=== PATIENT | female | born 1990 | race Caucasian/White ===

== ENCOUNTER 2017-05-04 16:33 | Emergency (ER) | payer MEDICAID ==
[~2017-05-04] VITALS: Ht 175.3 cm; Wt 125.0 kg
[~2017-05-04 16:33] MED LIST: IMOD2TAB PO; POLY10O RIGHT EYE; ZOFR4TAB3 SL
[2017-05-04 16:34] VITALS: BP 171/102; PULSE 112; RESP 20; TEMP 98.9; O2SAT 99
--- NOTE | 2017-05-04 17:04 | PD ---
HPI Chief Complaint: Cold / Flu Symptoms Time Seen by Provider: 17:00 Travel History International Travel<30 days: No Contact w/Intl Traveler<30days: No Traveled to known affect area: No History of Present Illness HPI 26-year-old female patient presents to emergency department one week history of cough and cold symptoms. Patient has had cough symptoms for over a week, and feels tightness and wheezing in her chest. She states her cough is worse at night and she cannot lay flat. She has no history of asthma or bronchitis in the past. She is a nonsmoker. 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 Patient states she has had some yellow sputum with her cough. She has no significant fever, sore throat, headache, ear pain, nausea or vomiting. She has no known drug allergies. PFSH Past Medical History Diabetes: Yes (gestational) Diminished Hearing: No ?: Not Past Surgical History Cholecystectomy: Yes Social History Alcohol Use: Yes (occ) Tobacco Use: No Substance Use: No Allergies-Medications (Allergen,Severity, Reaction): Coded Allergies: No Known Allergies (Unverified , 05/04/17) Reported Meds & Prescriptions Reported Meds & Active Scripts Active Review of Systems Except as stated in HPI: all other systems reviewed are Neg General / Constitutional: No: Fever, Chills Eyes: No: Visual changes HENT: Positive: Rhinitis, Rhinorrhea, Congestion, No: Headaches, Earache Cardiovascular: No: Chest Pain or Discomfort Respiratory: Positive: Cough, Shortness of Breath, Wheezing Gastrointestinal: No: Nausea, Vomiting, Diarrhea, Abdominal Pain Genitourinary: No: Dysuria Musculoskeletal: No: Pain Skin: No Rash Neurologic: No: Weakness Psychiatric: No: Depression Endocrine: No: Polydipsia Hematologic/Lymphatic: No: Easy Bruising Physical Exam Narrative GENERAL: Patient appears in no acute distress. SKIN: Warm and dry. Normal color. Normal turgor and no rash. HEAD: Atraumatic. Normocephalic. EYES: Pupils equal and round. No scleral icterus. No injection or drainage. ENT: No nasal bleeding or discharge. Mucous membranes pink and moist. Posterior pharynx is somewhat injected otherwise unremarkable. No significant lymphadenopathy or tonsillitis. Uvula is midline. No significant postnasal drip. No sinus tenderness. TMs are clear bilaterally. NECK: Trachea midline. Supple nontender without lymphadenopathy. CARDIOVASCULAR: Regular rate and rhythm. RESPIRATORY: No accessory muscle use. Mild expiratory wheezes with cough otherwise clear To auscultation. Breath sounds equal bilaterally. GASTROINTESTINAL: Abdomen soft, non-tender, nondistended. Hepatic and splenic margins not palpable. MUSCULOSKELETAL: Extremities without clubbing, cyanosis, or edema. No obvious deformities. NEUROLOGICAL: Awake and alert. No obvious cranial nerve deficits. Motor grossly within normal limits. Five out of 5 muscle strength in the arms and legs. Normal speech. PSYCHIATRIC: Appropriate mood and affect; insight and judgment normal. Data Data Last Documented VS Vital Signs Date Time Temp Pulse Resp B/P (MAP) Pulse Ox O2 Delivery O2 Flow Rate FiO2 05/04/17 16:34 98.9 112 20 171/102 (125) 99 Room Air Orders Orders Prednisone (Deltasone) (05/04/17 17:15) Albuterol-Ipratropium Neb (Duoneb Neb) (05/04/17 17:15) Sodium Chloride 0.9% Flush (Ns Flush) (05/04/17 17:15) MDM Medical Decision Making Medical Screen Exam Complete: Yes Emergency Medical Condition: Yes Differential Diagnosis Wheezy bronchitis. Wheezing. Upper respiratory symptoms. Cough. Narrative Course Patient is given 40 mg prednisone by mouth now. Patient is given DuoNeb to see if it improves her symptoms. Patient feels improved after treatment. Patient is given azithromycin as directed. Patient is given prednisone 20 mg daily for the next 5 days. Patient is given albuterol metered-dose inhaler 2 puffs every 4-6 hours when necessary cough. Patient can use cough medicine of choice. Patient follow with primary care physician or return to the ED as needed. Diagnosis Primary Impression: Acute wheezy bronchitis Referrals: Primary Care Physician Patient Instructions: General Instructions, How to Use a Metered-Dose Inhaler ( ED), Prednisone (By mouth) Additional Instructions: Patient is given azithromycin as directed. Patient is given prednisone 20 mg daily for the next 5 days. Patient is given albuterol metered-dose inhaler 2 puffs every 4-6 hours when necessary cough. Patient can use cough medicine of choice. Patient follow with primary care physician or return to the ED as needed. Med/Other Pt SpecificInfo: Prescription(s) given Disposition: 01 DISCHARGE HOME Condition: Stable Bhavesh Hurd May 04, 2017 17:04
[2017-05-04] MEDS ORDERED: RESP: ALBUTEROL 2.5 MG/IPRATROPIUM 0.5 MG NEB (SCH) INH ONE (17:15)
[2017-05-04] MEDS ORDERED: predniSONE 20 MG TAB PO ONE (17:15)
[2017-05-04] MEDS ORDERED: SODIUM CHLORIDE 0.9% FLUSH 10 ML FLUSH IVF PRN (17:15)
[2017-05-04] MEDS ORDERED: PRED20 PO (17:28)
[2017-05-04] MEDS ORDERED: VENTAER INH (17:28)
[2017-05-04] MEDS ORDERED: AZIT250T3 PO (17:28)
== END 2017-05-04 18:23 | disposition home or self-care (01) ==
LOC: NEPK 16:33
DX: J20.9 Acute bronchitis, unspecified (principal); E11.9 Type 2 diabetes mellitus without complications
CPT/HCPCS: 94664; 99284; J7512

== ENCOUNTER 2017-07-17 19:26 | Emergency (ER) | payer MEDICAID ==
[~2017-07-17 19:26] MED LIST changes: +AZIT250T3 PO; -IMOD2TAB PO; -POLY10O RIGHT EYE; +PRED20 PO; +VENTAER INH; -ZOFR4TAB3 SL
[2017-07-17 19:28] VITALS: BP 143/90; PULSE 112; RESP 20; TEMP 97.9; O2SAT 99
[2017-07-17] MEDS ORDERED: SODIUM CHLORIDE 0.9% FLUSH 10 ML FLUSH IVF PRN (19:45)
[2017-07-17 19:56] VITALS: TEMP 98; O2SAT 97
--- NOTE | 2017-07-17 20:04 | RADRPT ---
EXAM DATE/TIME: 07/17/2017 19:50 [facility] COMPARISON: No previous studies available for comparison. INDICATIONS : Short of breath MEDICAL HISTORY : None. SURGICAL HISTORY : Cholecystectomy. ENCOUNTER: Initial ACUITY: 1 month PAIN SCORE: 0/10 LOCATION: chest FINDINGS: A single view of the chest demonstrates the lungs to be symmetrically aerated without evidence of mas s, infiltrate or effusion. The cardiomediastinal contours are unremarkable. Osseous structures are intact. CONCLUSION: No acute disease. Miguel Resendez MD on July 17, 2017 at 20:01 Board Certified Radiologist. This report was verified electronically.
[2017-07-17 21:13] LABS: BASOPHIL # 0.1 TH/MM3 (0-0.2); BASOPHIL % 0.7 % (0.0-2.0); EOSINOPHIL # 0.8 TH/MM3 (0-0.4); EOSINOPHIL % 6.9 % (0.0-4.0); HEMATOCRIT 37.3 % (35.0-46.0); HEMOGLOBIN 12.2 GM/DL (11.6-15.3); LYMPH % 27.1 % (9.0-44.0); LYMPHOCYTE # 3.2 TH/MM3 (1.0-4.8); MEAN CELL VOLUME 82.5 FL (80.0-100.0); MEAN CORPUSCULAR HEMOGLOBIN 26.9 PG (27.0-34.0); MEAN CORPUSCULAR HGB CONC 32.7 % (32.0-36.0); MEAN PLATELET VOLUME 7.2 FL (7.0-11.0); MONO % 5.7 % (0.0-8.0); MONOCYTE # 0.7 TH/MM3 (0-0.9); NEUT % 59.6 % (16.0-70.0); PLATELET COUNT 301 TH/MM3 (150-450); RED BLOOD COUNT 4.53 MIL/MM3 (4.00-5.30); WHITE BLOOD COUNT 11.7 TH/MM3 (4.0-11.0)
[2017-07-17] MEDS ORDERED: KETOROLAC TROMETHAMINE 30 MG/ML (IVP) VIAL IV PUSH ONE (21:15)
[2017-07-17 21:27] LABS: BICARBONATE 25.4 MEQ/L (21.0-32.0); CALCIUM 8.3 MG/DL (8.5-10.1); CREATININE 0.8 MG/DL (0.50-1.00); MAGNESIUM 1.9 MG/DL (1.5-2.5)
[2017-07-17] MEDS ORDERED: RESP: ALBUTEROL 2.5 MG/IPRATROPIUM 0.5 MG NEB (SCH) NEB ONE (21:45)
[2017-07-17] MEDS ORDERED: SODIUM CHLOR 0.9% 1000 ML INJ 1,000 ML IV ONE (21:45)
[2017-07-17] MEDS ORDERED: VENTAER INH (22:09)
[2017-07-17] MEDS ORDERED: MEDR4PAK PO (22:09)
[2017-07-17] MEDS ORDERED: ZITHTAB PO (22:09)
--- NOTE | 2017-07-17 22:15 | PD ---
HPI Chief Complaint: Cold / Flu Symptoms Time Seen by Provider: 19:45 Travel History International Travel<30 days: No Contact w/Intl Traveler<30days: No Traveled to known affect area: No History of Present Illness HPI 26-year-old female presents to the emergency department by private transportation for complaint of one month of cough and congestion with yellow- green phlegm production. Patient is unclear if she's had fever but does not believe so. Family members have had cough but not phlegm production. Patient states due to persistent symptoms and development of dizziness finally decided to the emergency room for evaluation. Patient's had no no pleuritic pain and no hemoptysis. No lower extremity pain or swelling. No history of clotting disorder or long distance travel protracted bedrest her surgery. Patient takes no control and does not smoke cigarettes. Patient states that she has had sinus pressure mild sore throat from coughing. Patient did not have influenza vaccine. Patient has also noted dyspnea with exertion. Patient rates discomfort as moderate associated with cough. Patient's had no abdominal pain no vomiting no diarrhea no dysuria frequency urgency no vaginal discharge or vaginal bleeding. Last menstrual period was irregular but denies stating that since she has had the Implanon removed she has had irregular menses. [facility] Past Medical History Narrative Medical gestational diabetes, bronchitis; no tobacco use; nursing notes reviewed Medical History: Denies Significant Hx Diabetes: Yes (gestational) Diminished Hearing: No Tetanus Vaccination: < 5 Years ?: Not Dilation and Curettage (D&C): Yes Past Surgical History Cholecystectomy: Yes Social History Alcohol Use: No Tobacco Use: No Substance Use: No Allergies-Medications (Allergen,Severity, Reaction): Coded Allergies: No Known Allergies (Unverified Adverse Reaction, Unknown, 07/17/17) Reported Meds & Prescriptions Reported Meds & Active Scripts Active Review of Systems Except as stated in HPI: all other systems reviewed are Neg General / Constitutional: No: Fever HENT: Positive: Sore Throat, Congestion Cardiovascular: Positive: Chest Pain or Discomfort (with cough) Respiratory: Positive: Cough, Shortness of Breath, No: Orthopnea, Pleuritic Pain Gastrointestinal: No: Nausea, Vomiting, Diarrhea, Abdominal Pain Genitourinary: No: Dysuria, Flank Pain Musculoskeletal: Positive: Myalgias, Arthralgias Skin: No Rash Neurologic: No: Weakness Psychiatric: No: Anxiety Hematologic/Lymphatic: No: Lymph Node Enlargement Physical Exam Narrative GENERAL: Well-developed well-nourished female in no acute distress no respiratory distress; room air O2 saturation 98% mild tachycardia on triage vital signs heart rate 112 patient placed on staff pharmacist SKIN: Warm and dry. HEAD: Normocephalic. EYES: No scleral icterus. No injection or drainage. NECK: Supple, trachea midline. No JVD or lymphadenopathy. CARDIOVASCULAR: Regular rate and rhythm without murmurs, gallops, or rubs. RESPIRATORY: Breath sounds equal bilaterally. No accessory muscle use. GASTROINTESTINAL: Abdomen soft, non-tender, nondistended. MUSCULOSKELETAL: No cyanosis, or edema. BACK: Nontender without obvious deformity. No CVA tenderness. Data Data Last Documented VS Vital Signs Date Time Temp Pulse Resp B/P (MAP) Pulse Ox O2 Delivery O2 Flow Rate FiO2 07/17/17 19:57 17 Room Air 07/17/17 19:56 99 07/17/17 19:56 98.0 07/17/17 19:28 112 Orders Orders Complete Blood Count With Diff (07/17/17 19:45) Basic Metabolic Panel (Bmp) (07/17/17 19:45) B-Type Natriuretic Peptide (07/17/17 19:45) Magnesium (Mg) (07/17/17 19:45) Influenzae A/B Antigen (07/17/17 19:45) Iv Access Insert/Monitor (07/17/17 19:45) Ecg Monitoring (07/17/17 19:45) Oximetry (07/17/17 19:45) Oxygen Administration (07/17/17 19:45) Chest, Single Ap (07/17/17 19:45) Sodium Chloride 0.9% Flush (Ns Flush) (07/17/17 19:45) Ed Urine Pregnancytest Poc (07/17/17 19:45) D-Dimer (07/17/17 20:47) Ketorolac Inj (Toradol Inj) (07/17/17 21:15) Sodium Chlor 0.9% 1000 Ml Inj (Ns 1000 M (07/17/17 21:45) Albuterol-Ipratropium Neb (Duoneb Neb) (07/17/17 21:45) Labs Laboratory Tests Test 07/17/17 19:58 07/17/17 20:30 White Blood Count 11.7 TH/MM3 Red Blood Count 4.53 MIL/MM3 Hemoglobin 12.2 GM/DL Hematocrit 37.3 % Mean Corpuscular Volume 82.5 FL Mean Corpuscular Hemoglobin 26.9 PG Mean Corpuscular Hemoglobin Concent 32.7 % Red Cell Distribution Width 16.0 % Platelet Count 301 TH/MM3 Mean Platelet Volume 7.2 FL Neutrophils (%) (Auto) 59.6 % Lymphocytes (%) (Auto) 27.1 % Monocytes (%) (Auto) 5.7 % Eosinophils (%) (Auto) 6.9 % Basophils (%) (Auto) 0.7 % Neutrophils # (Auto) 7.0 TH/MM3 Lymphocytes # (Auto) 3.2 TH/MM3 Monocytes # (Auto) 0.7 TH/MM3 Eosinophils # (Auto) 0.8 TH/MM3 Basophils # (Auto) 0.1 TH/MM3 CBC Comment DIFF FINAL Differential Comment D-Dimer Quantitative (PE/DVT) 0.32 MG/L FEU B-Type Natriuretic Peptide 3 PG/ML Blood Urea Nitrogen 10 MG/DL Creatinine 0.80 MG/DL Random Glucose 125 MG/DL Calcium Level 8.3 MG/DL Magnesium Level 1.9 MG/DL Sodium Level 140 MEQ/L Potassium Level 4.0 MEQ/L Chloride Level 106 MEQ/L Carbon Dioxide Level 25.4 MEQ/L Anion Gap 9 MEQ/L Estimat Glomerular Filtration Rate 86 ML/MIN MDM Medical Decision Making Medical Screen Exam Complete: Yes Emergency Medical Condition: Yes Medical Record Reviewed: Yes Interpretation(s) [id number] hCG: negative Last Impressions Chest X-Ray 07/17/171944 Signed Impressions: Service Date/Time: Monday, July 17, 2017 19:50 - CONCLUSION: No acute disease. Miguel Resendez MD CBC & BMP Diagram 07/17/17 19:58 07/17/17 20:30 Calcium Level 8.3 L, Magnesium Level 1.9 Vital Signs Date Time Temp Pulse Resp B/P (MAP) Pulse Ox O2 Delivery O2 Flow Rate FiO2 07/17/17 19:57 17 Room Air 07/17/17 19:56 99 Room Air 07/17/17 19:56 98.0 97 Room Air 07/17/17 19:28 97.9 112 20 143/90 (107) 99 Room Air Differential Diagnosis Cough, bronchitis, pneumonia, PE, viral syndrome, influenza, pneumothorax, CHF, arrhythmia, electrolyte disturbance, dehydration Narrative Course Patient placed on staff pharmacist IV access obtained specimens collected and sent for resulting chest x-ray reveals no obvious lobar infiltrate D-dimer is not elevated; minimal leukocytosis; chemistries grossly normal range mild hyperglycemia; BNP not elevated Patient given Toradol 30 mg IV along with bolus of normal saline and DuoNeb updraft; patient is clinically improved and stable for outpatient management Patient given prescription for bronchitis with Medrol Dosepak albuterol inhaler and azithromycin Z-Ibrahima; patient reports clinically improved will be discharged with recommendation follow-up with primary care provider as needed Diagnosis Primary Impression: Bronchitis Referrals: Primary Care Physician call for appointment Patient Instructions: General Instructions Additional Instructions: Increase fluid hydration Take medications as prescribed Take acetaminophen/Tylenol every 4 hours as needed for fever 100.4F or greater or for minor pain May take ibuprofen/Advil/Motrin 600 mg as often as every 6 hours as needed for fever 100.4F or greater or pain associated with inflammation; avoid this medication while on Medrol Dosepak Return to the emergency for free concerns or change in condition No work times one day Med/Other Pt SpecificInfo: Prescription(s) given Scripts Methylprednisolone Dosepak (Medrol Dosepak) 4 Mg Dspk 4 MG PO DIRECTED, #1 DSPK 0 Refills Per Pharmacist direction Prov: Leora Bustos MD 07/17/17 Azithromycin (Zithromax Z-Ibrahima) 250 Mg Dspk 250 MG PO DIRECTED for Infection, #1 DSPK 0 Refills 500 MG (2 tabs) day 1, then 1 tab days 2-5. Prov: Leora Bustos MD 07/17/17 Albuterol 18 GM Inh (Ventolin Hfa 18 GM Inh) 90 Mcg/Act Aer 2 PUFF INH Q4-6H Y for SHORTNESS OF BREATH, #1 INHALER 0 Refills Prov: Leora Bustos MD 07/17/17 Disposition: 01 DISCHARGE HOME Condition: Stable Leora Bustos MD Jul 17, 2017 22:15
== END 2017-07-17 22:41 | disposition home or self-care (01) ==
LOC: NEPC 19:26
DX: J40 Bronchitis, not specified as acute or chronic (principal); D72.829 Elevated white blood cell count, unspecified; R00.0 Tachycardia, unspecified
CPT/HCPCS: 71045; 80048; 83735; 83880; 84703; 85025; 85379; 87804; 94664; 96374; 99284; J1885; J7030